=== PATIENT | male | born 1955 | race Caucasian/White ===

== ENCOUNTER 2023-08-26 10:03 | Emergency (ER) | payer MEDICARE ==
[~2023-08-26] VITALS: Ht 177.8 cm; Wt 96.0 kg
[2023-08-26 10:55] VITALS: PULSE 89; RESP 17; O2SAT 94
[2023-08-26 10:57] LABS: Urine Bacteria None Seen /hpf (None Seen)
[2023-08-26 11:09] LABS: Basophils # (auto) 0 10 ^3/uL (0-0.2); Basophils % (auto) 0.4 % (0.0-2.0); Eosinophils # (auto) 0.1 10 ^3/uL (0-0.8); Eosinophils % (auto) 0.5 % (0.0-7.0); Hematocrit 41.3 % (41.0-53.0); Hemoglobin 14.1 g/dL (13.5-17.5); Lymphocytes # (auto) 2.4 10 ^3/uL (0.4-5.4); Lymphocytes % (auto) 24.2 % (10.0-50.0); Mean Corpuscular Hemoglobin 30.2 pg (28.0-32.0); Mean Corpuscular Hgb Conc. 34.1 g/dL (32.0-36.0); Mean Corpuscular Volume 88.5 fL (80.0-100.0); Monocytes # (auto) 1.3 10 ^3/uL (0-1.3); Monocytes % (auto) 13.4 % (0.0-12.0); Neutrophils % (auto) 61.5 % (37.0-80.0); Red Blood Cells 4.67 10^6/uL (4.5-5.90); Red Cell Distribution Width 13.2 % (11.8-14.3); White Blood Cell 9.7 10^3/uL (4.4-10.8)
[2023-08-26 11:12] LABS: Urine Blood Negative /uL (Negative); Urine Clarity Clear (Clear); Urine Color Yellow (Yellow); Urine Hyaline Cast FEW /lpf (0 - 2); Urine Mucus FEW (None Seen); Urine Protein, UAD Negative (Negative); Urine Specific Gravity 1.021 (1.001-1.035); Urine Urobilinogen Normal (Negative); Urine WBC 1 /hpf (0 - 3)
[2023-08-26 11:21] LABS: INR 0.98 (0.9-1.15); Partial Thromboplastin Time 29.9 SEC (24.5-34.5); Prothrombin Time 10.4 sec (9.3-11.8)
[2023-08-26 11:22] LABS: Alanine Aminotransferase 15 U/L (7-40); Albumin 4.4 g/dL (3.2-4.8); Alkaline Phosphatase 104 U/L (46-116); Anion Gap 6 (5-15); Aspartate Aminotransferase 10 U/L (13-40); BUN/Creatinine Ratio 11.5 (10.0-20.0); Bilirubin, Total 0.4 mg/dL (0.2-1.0); Blood Urea Nitrogen 13 mg/dL (9-23); Calcium 9.8 mg/dL (8.7-10.4); Carbon Dioxide 29 mmol/L (20-30); Chloride 103 mmol/L (98-107); Glucose 124 mg/dL (74-106); Potassium 3.9 mmol/L (3.5-5.1); Sodium 138 mmol/L (136-145); Total Protein 7.1 g/dL (5.7-8.2)
[2023-08-26 12:00] VITALS: TEMP 98.2
[2023-08-26] MEDS: IOHEXOL 300 MG/ML 100ML BOTTLE IJ ONE (13:09)
[2023-08-26] MEDS ORDERED: METO-281 PO (15:30)
[2023-08-26] MEDS ORDERED: LEVO75TA6 PO (15:30)
[2023-08-26] MEDS ORDERED: LEVO112T4 PO (15:40)
[2023-08-26 15:45] VITALS: BP 106/71; PULSE 74; RESP 12; O2SAT 95
== END 2023-08-26 15:55 | disposition home or self-care (01) ==
LOC: ER 10:03
DX: G44.52 New daily persistent headache (NDPH) (principal); I65.22 Occlusion and stenosis of left carotid artery; E03.9 Hypothyroidism, unspecified; J44.9 Chronic obstructive pulmonary disease, unspecified; Z86.73 Personal history of transient ischemic attack (TIA), and cerebral infarction without residual deficits
CPT/HCPCS: 36415; 70470; 70487; 70491; 71045; 80053; 81001; 83880; 84443; 84484; 85025; 85610; 85730; 93005; 99285; Q9967